=== PATIENT | male | born 1950 | race Caucasian/White ===

== ENCOUNTER → 2016-11-06 | Outpatient (CLI) | payer MEDICARE ==
[~2016-11-06] MED LIST: HYDROCODON-ACE1 EAC7 PO; LIPITOR PO; OLANZAPINE10 MG PO; ZYPREXA7.5 MG PO
--- NOTE | ~2016-11-06 | CT57 ---
[facility] A Service of [facility] RADIOLOGY TEXT RESULTS PATIENT: AUGUSTO AMEZQUITA [facility] 46 UNIT #: [id number] AGE: [address]: JENAE MEADE MD SEX: M ORDER DR: [id number] [facility] [address] [place], [place] [address] [id number] O MR#: [id number] [facility] #: [id number] NAME: AUGUSTO AMEZQUITA. : 1950 SEX: M STUDY DATE/TIME: 11/06/2016 14:56 UNIT: [facility] ROOM: STUDY DESCRIPTION: CT Chest Wo Cont Attending Physician: Jenae Meade M.D. Referring Physician: Jenae Meade M.D. Ordering Physician: Jenae Meade M.D. Primary Care Physician: Jenae Meade M.D. MEDICAL IMAGING REPORT This report is preliminary unless electronic signature is present EXAM CT of the chest with contrast. INDICATIONS Followup pulmonary nodule. TECHNIQUE CT scan of the chest was performed without contrast. Coronal and sagittal reformatted images were obtained. This CT exam was performed with one or more of the following radiation dose reduction techniques: automatic exposure control, adjustment of mA and/or kV according to patient size, and iterative reconstruction. COMPARISON STUDIES Comparison is made with 05/15/2016. FINDINGS Redemonstrated is a somewhat nodular density in the right apex adjacent to the pleural surface which appears slightly more thickened compared with most recent study. This is best appreciated on the sagittal view. There is background emphysema. There are scattered calcified granulomas in the lungs. No airspace consolidation. No lymphadenopathy. Calcified mediastinal hilar lymph nodes. No pleural effusion. Limited imaging of the upper abdomen demonstrates a small cyst in the liver. Bone windows are unremarkable. IMPRESSION The density in the right apex adjacent to the pleural surface appears slightly more thickened, and this is best seen on the sagittal view. Again it remains indeterminate and may simply represent some asymmetric scarring. Close interval followup is recommended. Another scan could be performed and 6 months as follow up. Alternatively if there is clinical concern for malignancy a PET/CT may be helpful. [facility] A Service of [facility] RADIOLOGY TEXT RESULTS PATIENT: AUGUSTO AMEZQUITA LOCATION: [facility] : 46 UNIT #: [id number] AGE: [address]: JENAE MEADE MD SEX: M ORDER DR: Dictated by... Cheo Levin M.D. THIS IS AN ELECTRONICALLY VERIFIED REPORT Cheo Levin M.D. at 11/08/2016 4:59 PM TERESA/monica TD: 11/07/2016 18:08 JOB #: [id number] MEDICAL IMAGING REPORT Page 1 of 1 COPY
[2016-11-06 17:36] LABS: POC - CREATININE 0.88 mg/dL (0.64-1.27); POC - GFR >60.0 mL/min (>60)
== END | disposition home or self-care (01) ==
LOC: CCAT 14:22
PROVIDERS: Internal Medicine
DX: R91.8 Other nonspecific abnormal finding of lung field (principal); J98.4 Other disorders of lung; J92.9 Pleural plaque without asbestos
CPT/HCPCS: 71250; 82565